=== PATIENT | male | born 1945 | race Caucasian/White ===

== ENCOUNTER 2025-03-02 10:43 | Outpatient (CLI) | payer MEDICARE, BC | END 2025-03-02 10:44 | disposition home or self-care (01) | LOC: SCSMRI 10:43 | PROVIDERS: ATTEND Orthopaedic Surgery | DX: M75.122 Complete rotator cuff tear or rupture of left shoulder, not specified as traumatic (principal); S46.012A Strain of muscle(s) and tendon(s) of the rotator cuff of left shoulder, initial encounter; S46.212A Strain of muscle, fascia and tendon of other parts of biceps, left arm, initial encounter; S43.432A Superior glenoid labrum lesion of left shoulder, initial encounter; M19.012 Primary osteoarthritis, left shoulder; M75.52 Bursitis of left shoulder ==